=== PATIENT | female | born 1965 | race Caucasian/White ===

== ENCOUNTER 2025-04-26 18:27 | Emergency (ER) | payer OTHER, SELFPAY ==
--- OUTSIDE RECORDS SUMMARY | 2025-04-26 18:40 | XMS_ITS | Clinical Summary ---
Author Organization [facility] al Address [address] [place] [address] Care Team Providers Care Buzzle Buffer Name Role Phone Adi Alicia MD Primary Care Provider + Eder Avila PT Unavailable Unavailab le Allergies No known active allergies Medications albuterol HFA (PROAIR HFA) 90 mcg/actuation inhalerIndicati ons:Bronchitis Inhale 2 puffs every 4 (four) hours as needed for wheezing or shortness of breath. 8.5 g 9 Active hydrOXYzine (ATARAX) 25 mg tablet Take 1 tablet (25 mg total) by mouth 4 (four) times a day as needed for anxiety. 9 Active Additional Information Patient not taking.Reported on 09/17/2021 multivit diuhtdta-vjvt-X A-calcium (THERA-M) 9 mg iron-400 mcg tablet Take 1 tablet by mouth daily. [address] (PROTONIX) 40 mg EC tabletIndicatio ns:Treatment of Non-Bleeding Gastric Disorder Take 1 tablet (40 mg total) by mouth 2 (two) times a day Indications: Treatment of Non-Bleeding Gastric Disorder. 60 tablet 11 9 Active sertraline (ZOLOFT) 25 mg tablet Take 1 tablet (25 mg total) by mouth daily. 30 tablet 11 9 Active triamcinolone (KENALOG) 0.1 % cream Apply topically 2 (two) times a day 9 Active raNITIdine (ZANTAC) 150 mg tablet ranitidine 150 mg tablet Active predniSONE (DELTASONE) 20 mg tablet prednisone 20 mg tablet Active omega 1-pwp-qup-fish oil 1,000 mg (120 mg-180 mg) capsule 0 Active fluticasone propionate (FLONASE) 50 mcg/actuation nasal spray fluticasone propionate 50 mcg/actuation nasal spray,suspension Active cefdinir (OMNICEF) 300 mg capsule cefdinir 300 mg capsule Active calcium carbonate-vitam in D3 1500 mg (600 mg elemental) -200 units per tablet Take by mouth Active Active Problems Problem Noted Date Diagnosed Date Abnormal finding on breast imaging 09/11/2020 Nipple inflammation 09/11/2020 Breast mass, left 09/11/2020 Anxiety 01/22/2019 Assessment & Plan (01/23/2019 9:33 AM POWER TRANSFORMER INSPECTOR): Post ICU syndrome: anxiety with recurrent tachypnea, started sertraline 25mg QD, atarax prn Hoarseness 01/18/2019 Assessment & Plan (01/23/2019 9:33 AM POWER TRANSFORMER INSPECTOR): - Very hoarse following intubation - ENT c/s: 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 No surgical intervention recommended. - Speech c/s: Cleared for dysphagia 2/thin liquid diet. 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 No surgical intervention recommended. - Speech c/s: Cleared for dysphagia 2/thin liquid diet. HSV (herpes simplex virus) infection 01/18/2019 Assessment & Plan (01/24/2019 9:09 AM POWER TRANSFORMER INSPECTOR): Lip and esophageal ulcers. Serum HSV PCR + - s/p acyclovir IV 01/17- 01/23 (7 days). Assessment & Plan (01/19/2019 1:05 PM POWER TRANSFORMER INSPECTOR): - Patient with crusted ulcers on lip and esophageal ulcers - Serum HSV PCR positive. Esophageal biopsies consistent with HSV esophagitis. - Acyclovir (01/17-) Melena 01/16/2019 Assessment & Plan (01/24/2019 9:08 AM POWER TRANSFORMER INSPECTOR): Noted on 01/15. GI following - EGD 01/15 w/ non-bleeding cratered and linear esophageal ulcers, erosive gastropathy. - Esophageal biopsy + HSV esophagitis. - s/p acyclovir 01/17- 01/23 (7 days). - transfuse Hgb <7 No further episodes of melena. Hgb stable ~7.5-8. Assessment & Plan (01/19/2019 1:04 PM POWER TRANSFORMER INSPECTOR): 950 mL of black liquid stool on 01/15. Hgb trend 7.4 -> 6.2 -> 1 U pRBCs -> 7.9. - GI following - Hemodynamically stable - CBC Q12, transfuse to Hgb >7 - Pantoprazole 40 mg IV BID - EGD showed non-bleeding cratered & linear esophageal ulcers, NG trauma in stomach, erosive gastropathy - EGD biopsies consistent with HSV esophagitis. On acyclovir (01/17-) Rash 01/12/2019 Assessment & Plan (01/25/2019 10:26 AM POWER TRANSFORMER INSPECTOR): Derm c/s: Drug rash vs. Virus. Start triamcinolone if having sx RESOLVED. Assessment & Plan (01/14/2019 4:44 PM POWER TRANSFORMER INSPECTOR): Noted to have maculopapular rash over large section of her BLE, back, and trunk in distribution. Soap changed. Likely drug or virus-related. - Dermatology following - Rec'd Benadryl 50 for increasing rash - No topical steroids - Can initiate triamcinolone cream once patient is extubated and if symptomatic from rash Coagulopathy 01/11/2019 Assessment & Plan (01/25/2019 10:26 AM POWER TRANSFORMER INSPECTOR): P/w plts <100 and bleeding from line sites/mouth. IMANI showed increased clotting time. D-dimer high, normal INR, LDH high, peripheral smear normal. ENT consulted 01/12, oropharyngeal packing removed after 48+ hours, L nasal packing in place - Thrombocytopenia 2/ sepsis and other illness, now recovered with plts >300 - CT-CAP 01/11 neg for hemorrhage. - Noted to have melena on 01/15, EGD with HSV esophagitis - S/p 7u plts, 3u FFP, 12u pRBC (last 01/18 am), and desmopressin 20 mcg x 2 on 01/11-01/13 RESOLVED. Hgb remains stable ~8, plts 400s. Assessment & Plan (01/19/2019 1:03 PM POWER TRANSFORMER INSPECTOR): Bleeding at insertion site of radial A line, in mouth, and menstrual. Pt oozing blood continuously. IMANI showed increased clotting time. D-dimer high, normal INR, LDH high, peripheral smear normal. DDx post-ECMO coagulopathy, hyperuremia, HSV. - Noted to have melena on 01/15 - S/p 3 pRBC + 2 FFP, desmopressin 20 mcg x 2 on 01/11-01/13 - CTM CBC, Plt goal >100 - CT CAP 01/11 with no evidence of hemorrhage - ENT consulted 01/12, oropharyngeal packing removed after 48+ hours, L nasal packing in place - LEDs 01/17 negative - Serum HSV PCR positive and biopsies of esophageal ulcers positive for HSV esophagitis. Started on acyclovir 01/17 Acute kidney injury 01/05/2019 Assessment & Plan (01/25/2019 10:26 AM POWER TRANSFORMER INSPECTOR): 2/ ATN. B/l Cr 1-1.1, peaked at 6.5 - renal following - S/p CVVHD (started 01/11) and iHD (last session 01/19) - pulled RIJ HD cath 3/ per renal as no longer needs HD due to good UOP and improving Cr - Cr continues to improve, 1.65 today - renal signed off, has f/u as outpatient 03/22 Assessment & Plan (01/19/2019 1:03 PM POWER TRANSFORMER INSPECTOR): In setting of septic shock, likely 2/2 prerenal and ischemic ATN. Initial AG lactic acidosis 2/2 septic shock, worsened with contrast and vanc. Pt previously being diuresed while on VV ECMO. - Renal following - CVVHDF (01/11-01/17) -> SLED -> iHD (01/19) - UOP > 200 mL yesterday although not charted - Cr 1.40 -> 3.42 - Tolerated iHD well today - CTM UOP and daily BMP to assess recovery of renal function Septic shock 12/31/2018 Assessment & Plan (01/20/2019 1:43 PM POWER TRANSFORMER INSPECTOR): 2/ flu A and S. Pyogenes bacteremia. Blood cx + on 12/31, neg on 01/02 and neg on multiple BCx since then. S/p pressors - S/p Vanc (12/31-01/04), azithro, cefe (01/05-01/11), CTX (01/03-01/16), tamiflu (s/p 7 day course) RESOLVED. Assessment & Plan (01/17/2019 2:40 PM POWER TRANSFORMER INSPECTOR): 2/ S. pyogenes bacteremia, influenza A, and pneumonia (? GAS). Patient initially neutropenic and thrombocytopenic in s/o sepsis. - S/p Azithromycin, vanc (12/31-01/01), CTX (5 days for UTI), cefe, CTX finished 01/16 - Completed oseltamivir 7 day course for flu coverage - Repeat blood cultures 01/02 negative - C. diff 01/08 negative - Now off pressors - TTE 01/01: mild-mod global LV systolic dysfunction (EF 30-40%), global hypokinesis involving all segments of LV, mild TR, dilated IVC w/o respiratory collapse (c/w elevated RAP). - [place] 01/03: negative for shunting, vegetations, or thrombus. Normal Global LVSF (55-60%), mild TR/MR. Assessment & Plan (12/31/2018 6:19 PM POWER TRANSFORMER INSPECTOR): Started on Vanco, Cefepime, Zithromax Acute respiratory failure with hypoxia and hyper capnia 12/31/2018 Assessment & Plan (01/21/2019 9:55 AM POWER TRANSFORMER INSPECTOR): ARDS 2/2 sepsis in s/o PNA, influenza A, GAS bacteremia. - S/p intubation from 12/31->VV ECMO 01/05-01/13->extubated 01/17, now on room air - CT head 01/11 neg. ABG on 01/18, mildly alkalotic w/ pH 7.51 (pCO2 31, pO2 91) - no longer as tachypneic (anxiety thought to be contributing), satting well on RA Assessment & Plan (01/17/2019 7:44 PM POWER TRANSFORMER INSPECTOR): ARDS presumed secondary to sepsis in setting of BL PNA with influenza A infection and S. Pyogenes positive blood cultures. Prev proned and s/p velitri 20K. - Initially on BiPAP then intubated/sedated for worsening respiratory status on 12/31, extubated 01/17 - S/p VV ECMO 01/05-01/13 - Continue scheduled APAP and oxycodone - CT head 01/11 negative Assessment & Plan (12/31/2018 6:23 PM POWER TRANSFORMER INSPECTOR): On Bipap, theater usher consulted. Pt full code D-dimer positive, CT Chest pending Resolved Problems Problem Noted Date Diagnosed Date Resolved Date Fever 01/14/2019 01/20/2019 Assessment & Plan (01/15/2019 2:41 AM POWER TRANSFORMER INSPECTOR): Likely post-ECMO related. - Treated for fever for 24 hours after ECMO decannulation. - Follow up olson cultures, fungal cultures, serum galactomannon - Changed all CVCs Respiratory failure with hyp oxia and hypercapnia 01/06/2019 01/06/2019 Immunizations Immunization Administration Dates Next Due Influenza, Quadrivalent, Spl it, Preservative Free, Intramuscular 01/21/2019 Influenza, Split 03/20/2014 Surgical History Surgery Date Site/Laterality Comments BREAST BIOPSY 09/25/2020 Left Family History Medical History Relation Name Comments Other Brother 2 healthy; Other Father ALS, Type 2 DM; Heart attack Maternal Grandmother [place]; Coronary artery disease Mother Penny nary artery disease; Relation Name Status Comments Brother 1 Alive Brother 2 Father Alive Maternal Grandmother Alive Mother Alive Social History Tobacco Use Types Packs/Day Years Used Date Smoking Tobacco: Never Alcohol Use Standard Drinks/Week Comments Yes 0 (1 standard drink = 0.6 oz pur e alcohol) Comments No Sex and Gender Information Value Date Recorded Sex Assigned at Not on file Legal Sex Female 11:50 PM POWER TRANSFORMER INSPECTOR Gender Identity Not on file Sexual Orientation Not on file Obstetrics History Last Filed Vital Signs Vital Sign Reading Time Taken Comments Blood Pressure 112/60 09/17/2021 9:43 AM CDT Pulse 57 09/17/2021 9:43 AM CDT Temperature 36.7 C (98.1 F) 09/17/2021 9:43 AM CDT Respiratory Rate 16 09/17/2021 9:43 AM CDT Oxygen Saturation 96% 09/17/2021 9:43 AM CDT Inhaled Oxygen Concentration - - Weight 49.9 kg (110 lb) 09/17/2021 9:43 AM CDT Height 154.9 cm (5' 1) 09/17/2021 9:43 AM CDT Body Mass Index 20.78 09/17/2021 9:43 AM CDT Plan of Treatment Health Maintenance Due Date Last Done Comments Cervical Cancer Screening 1964 Depression Screening 1964 Hepatitis B Screening 1982 Regular Well Visit/Exam 18-64 1982 Colon Cancer Screening-Colonoscopy 05/29/2024 05/29/2014, 05/29/2014 Influenza Vaccine (Season Ended) 2025 09/01/2022, 08/27/2021, 09/15/2020, Additional history exists Breast Cancer Screening-Mammogram 10/11/2025 10/11/2024, 10/08/2023, 10/08/2023, Additional history exists DTaP/Tdap/Td Vaccine (2 - Td or Tdap) 03/07/2029 03/07/2019 Colon Cancer Screening-CT Colonography Discontinued 05/29/2014, 05/29/2014 Colon Cancer Screening-DNA Stool Discontinued 05/29/2014, 05/29/2014 Colon Cancer Screening-FIT Discontinued 05/29/2014, Colon Cancer Screening-Sigmoidoscopy Discontinued 05/29/2014, 05/29/2014 Hepatitis C Screening Completed 01/01/2019 Zoster Vaccine Completed 10/17/2019, 06/10/2019 Pneumococcal vaccine <65 Aged Out 11/02/2020, 01/21 No longer eligible based on patient's age to complete this topic Procedures Procedure Name Priority Date/Time Associated Diagnosis Comments SCREENING MAMMOGRAM BILATERAL W KARLO Schedule Routine, Read Routine (OP Routine) 10/11/2024 2:14 PM POWER TRANSFORMER INSPECTOR Screening mammogram, encounter for HEPATITIS C ANTIBODY Routine 01/01/2019 2:52 AM POWER TRANSFORMER INSPECTOR COLONOSCOPY IMAGES 05/29/2014 from Last 3 Months or Most Recently Relevant to Health Maintenance Results * Screening Mammogram Bilateral W Karlo (10/11/2024 2:14 PM POWER TRANSFORMER INSPECTOR) Anatomical Region Laterality Modality Breast Bilateral Mammography Narrative 10/13/2024 2:29 PM POWER TRANSFORMER INSPECTOR Mammogram Technique: Bilateral Digital Breast Tomosynthesis, Bilateral C-view 2D Screening mammogram. Views obtained: bilateral craniocaudal and bilateral mediolateral oblique. Computer Aided Detection was performed. Mammogram Findings: The present examination has been compared to prior imaging studies performed at [facility] on 03/10/2017, 08/31/2018, 01/25/2020, 09/11/2020, 01/08/2022 and 10/08/2023. There are scattered areas of fibroglandular density. There is no suspicious abnormality in either breast. There are no significant changes from the prior study. Impression: There is no mammographic evidence of malignancy. Annual screening mammography is recommended. OVERALL FINAL ASSESSMENT: BI-RADS CATEGORY 1: Negative. Procedure Note Paula Villeda MD - 10/13/2024 Mammogram Technique: Bilateral Digital Breast Tomosynthesis, Bilateral C-view 2D Screening mammogram. Views obtained: bilateral craniocaudal and bilateral mediolateral oblique. Computer Aided Detection was performed. Mammogram Findings: The present examination has been compared to prior imaging studies performed at [facility] on 03/10/2017, 08/31/2018,01/25/2020, 09/11/2020, 01/08/2022 and 10/08/2023. There are scattered areas of fibroglandular density. There is no suspicious abnormality in either breast. There are no significant changes from the prior study. Impression: There is no mammographic evidence of malignancy. Annual screening mammography is recommended. OVERALL FINAL ASSESSMENT: BI-RADS CATEGORY 1: Negative. us Self Screening Mammogram IMG MAMMO PROCEDURES Fi nal Result * Hepatitis C antibody (01/01/2019 2:52 AM POWER TRANSFORMER INSPECTOR) Hep C Ab Negative Negative MICHELLE RENEE (YVNO) Comment:Testing performed by : [facility], [address] [place] [address]., [id number] Blood specimen (specimen) 01/01/2019 2:52 AM POWER TRANSFORMER INSPECTOR 01/03/2019 11:03 AM POWER TRANSFORMER INSPECTOR Narrative MICHELLE RENEE (YVNO) - 01/03/2019 11:54 AM POWER TRANSFORMER INSPECTOR Ramiro Hernandez MD LAB MICROBIOLOGY - G ENERAL ORDERABLES Final Result MICHELLE THELMA (YVON) [address] [facility] Department [place] [address] * COLONOSCOPY IMAGES (05/29/2014) Anatomical Region Laterality Modality Other Narrative 05/29/2014 Ordered by an unspecified provider. Historical Provider GI PROCEDURE ORDERABLES F inal Result from Last 3 Months or Most Recently Relevant to Health Maintenance Insurance [employer] [facility] Advance Directives For more information, please contact: [phone] * Full Code (Latest Code Status on File) Date Activated Date Inactivated Comments 01/05/2019 6:33 AM 01/25/2019 7:07 PM * Full Code Date Activated Date Inactivated Comments 12/31/2018 9:03 PM 01/05/2019 6:30 AM * Full Code Date Activated Date Inactivated Comments 12/31/2018 6:39 PM 12/31/2018 9:03 PM Healthcare Agents on File Name Relationship Healthcare Agent Relationshi p Communication Heather Cason Spouse Health Care Agent Care Teams Buzzle Buffer Relationship Specialty Start Date End Date Adi Alicia MD PCP - General 03/08/19 Eder Avila, PT Physical Therapist Physical Therapy 03/13/22
--- OUTSIDE RECORDS SUMMARY | 2025-04-26 18:40 | XMS_ITS | Encounter Summary ---
Author Organization [facility] Address [address] [place] [address] Phone Care Team Providers Care Industrial Nurse Name Role Phone Zaire Fernandes MD Primary Care Provider [phone] Adi Alicia MD Primary Care Provider + Eder Avila PT Unavailable Unavailab le Encounter Details Date Type Department Care Team (Late st Contact Info) Description 01/10/2019 Ophth Exam [facility] [address] [place] [address] [place] [address] Fela Juan MD [address] [place] [address] Social History Tobacco Use Types Packs/Day Years Used Date Smoking Tobacco: Never Alcohol Use Standard Drinks/Week Comments Yes 0 (1 standard drink = 0.6 oz pur e alcohol) Comments No Sex and Gender Information Value Date Recorded Sex Assigned at Not on file Legal Sex Female 11:50 PM GUIDE SETTER Gender Identity Not on file Sexual Orientation Not on file documented as of this encounter Plan of Treatment Not on file documented as of this encounter Visit Diagnoses Not on filedocumented in this encounter Additional Health Concerns Infection Onset Date Last Indicated Resolved Time COVID: Suspected 09/17/2021 09/17/2021 09/17/2021 10:06 AM CDT documented as of this encounter Eye Exam Visual Acuity Right eye Left eye Near sc no BTL no BTL Tonometry (Tonopen, 12:32 PM) Right eye Left eye Pressure 8 12 Pupils Dark Light Shape React APD Right eye 2 1.5 Round Brisk None Left eye 2 1.5 Round Brisk None Neuro/Psych Mood/Affect: Sedated Dilation Both eyes: 1.0% Mydriacyl, 2 .5% Phenylephrine, 1.0% Cyclogyl @ 12:40 PM External Exam Right eye Left eye External Sedated, intubated, on ECMO Maci arpita, intubated, on ECMO Slit Lamp Exam Right eye Left eye Lids/Lashes 3-4 mm lagophthalmos OS>OD 3-4 m m lagophthalmos OS>OD Conjunctiva/Sclera Mild chemosis and in jection most prominent in IPF, tr MILI Mild chemosis and injection most prominent in IPF, tr MILI Cornea Diffuse PEE Diffuse PEE, inf erior dellen Anterior Chamber Deep and formed Deep and formed Iris Round and reactive Round and francie ctive Lens Tr NS Tr NS Vitreous Normal Normal Fundus Exam Right eye Left eye Disc Normal Normal C/D Ratio 0.3 0.3 Macula Normal Normal Vessels Normal Normal Periphery Normal Normal Care Teams Industrial Nurse Relationship Specialty Start Date End Date Zaire Fernandes MD [address] [place] [address] PCP - General 02/20/17 03/07/19 Adi Alicia MD [address] [place] [address] PCP - General 03/08/19 Eder Avila, PT Physical Therapist Physical Therapy 03/13/22 documented as of this encounter
--- OUTSIDE RECORDS SUMMARY | 2025-04-26 18:40 | XMS_ITS | Data Portability ---
Author Organization [place] [facility], Main Office Address [address] [place] [address] Care Team Providers Care [employer] Senior Officer Name Role Phone KATHY CHAUDHRY Primary Care Provider [phone] KATHY CHAUDHRY Referring Provider [phone] Assessment Encounter Date Assessment Date Assessment LastModified by Organization Details LastModified Time 09/02/2023 09/02/2023 58-year-old patient presents today with right knee pain that has been on off for few months. She has pain on the medial side with activities like running and lawn work. She denies any injury. She denies locking or catching. She takes ibuprofen for the pain, which helps sometimes. She states that the knee has gotten better over the last few weeks but she wanted to have it checked out just to be sure. Review of systems per patient questionnaire Imaging: X-rays reviewed show no acute bony abnormality, no fracture. Some mild joint space narrowing on the medial sides bilaterally but otherwise joint spaces preserved throughout. Physical exam: Nonantalgic gait. No tenderness with palpitation. Range of motion 0-150 without crepitus. Negative Arabella's. Stable Tanika's with firm endpoint. Stable posterior drawer, varus and valgus stress. Normal patellar mobility. She does not feel that she has enough pain to want to attend formal physical therapy. We will provide her with a knee exercise handout that she can work on at home. We will also order meloxicam for anti-inflammator y therapy. We will see her back in 4-6 weeks to check her progress. [email or web address] Not available 09/04/2023 09:31:45 Plan of Treatment Reminders Order Date Submit Date Provider Last Modified By Organization Details Last Modified Time Details Appointments None recorded . Lab None recorded . Referral None recorded . Procedures None recorded . Surgeries None recorded . Imaging XR, knee, 3 view 023 09/02/20 23 [email or web address] [facility] [place], [address], [place], [address], 3 09:20:04 Medication Orders Mobic 15 mg tablet 023 09/02/20 23 [email or web address] [id number], [address], [place], [place], [id number], 3 19:56:18 Patient TargetsNo targets recorded. Patient InstructionsNo instructions recorded. Reason for Referral None Reported. Results Created Date Observation Date Name Description Value Unit Range Abnormal Flag Note LastModifiedBy Organization Detail LastModifiedTime 03/03/20 22 XR, shoul myrna, 2 or more view No observ ation record ed. [id number] [id number] [place] [address], [place], [address], 01/21/2023 14:14:20 09/02/20 23 XR, knee, 3 view No observ ation record ed. [email or web address] [facility] [place] [address], [place], [address], 09/04/2023 09:29:16 Result Notes None recorded. Problems Name Problem SNOMED Code Status Onset Date Resolution Date Notes Provider Name and Address Organization Details Recorded Time Disorder of shoulder 816668392 Active Not Available [facility] 3 14:12:07 Partial thickness rotator cuff tear 602829826 Active 2021 Not Available [facility] 3 14:12:07 Enthesopat hy of hip region 19555936 Active Not Available [facility] 3 14:12:07 Spinal stenosis in cervical region 22634117 Active 2021 Not Available [facility] 3 14:12:07 Pain of right knee joint 0095437706446 00 Active 2022 Viky Choi, ADRIANA null, [place] [facility] 3 15:37:16 Problem Notes None recorded. Medical Equipment None Reported. Medications Name Sig Start Date Stop Date Status Note LastModified by Organization Details LastModified Time prednisone 10 mg tablet 09/02 completed Not Available Not Available Not Available doxycycline hyclate 100 mg capsule 09/02 completed Not Available Not Available Not Available tizanidine 2 mg tablet 09/02 completed Not Available Not Available Not Available trazodone 50 mg tablet active Not Available Not Available Not Available benzonatate 200 mg capsule 09/30 completed Not Available Not Available Not Available prednisone 20 mg tablet 03/03 completed Not Available Not Available Not Available amlodipine 2.5 mg tablet TAKE 1 TABLET BY MOUTH DAILY active Not Available Not Available No t Available triamcinolo ne acetonide 0.1 % topical cream 03/03 completed Not Available Not Available Not Available prednisone 10 mg tablets in a dose pack Take 1 tab by mouth, 3 times a day for 3 daysTake 1 tab by mouth 2 times a day for 2 daysTake 1 tab by mouth once a day for 1 day 09/02 completed Not Available Not Available Not Available Mobic 15 mg tablet Take 1 tablet every day by oral route. 2022 active Not Available Not Available Not Avai lable dicyclomine 20 mg tablet 03/03 completed Not Available Not Available Not Available ranitidine 150 mg tablet 03/03 completed Not Available Not Available Not Available methylpredn isolone 4 mg tablets in a dose pack 03/03 completed Not Available Not Available Not Available cefdinir 300 mg capsule 03/03 completed Not Available Not Available Not Available fluticasone propionate 50 mcg/actuati on nasal spray,suspe nsion 03/03 completed Not Available Not Available Not Available dicyclomine 10 mg capsule 03/03 completed Not Available Not Available Not Available ProAir HFA 90 mcg/actuati on aerosol inhaler INL 2 PFS PO Q 4 H PRF WHZ OR SOB active Not Available Not Available No t Available diclofenac 1 % topical gel APPLY 2 GRAMS TO AFFECTED AREA FOUR TIMES DAILY 09/02 completed Not Available Not Available Not Available Shingrix (PF) 50 mcg/0.5 mL intramuscul ar suspension, kit 03/03 completed Not Available Not Available Not Available Vitals Date Recorded Body mass index (BMI) Body height Body weight Provider Name and Address Organization Details Last Updated DateTime 03/03/2022 21.7 kg/m2 154.94 cm 74764.12 g Not Available [facility] 01/21/2023 14:11:51 Date Recorded Body height Body mass index (BMI) Body weight Provider Name and Address Organization Details Last Updated DateTime 09/02/2023 154.94 cm 20.8 kg/m2 86828.16 g Viky Choi [facility] [employer] 09/02/2023 15:35:10 Social History Question Answer Notes LastModified by [employer] Details LastModified Time Tobacco Smoking Status Never Smoker Not Available [facility] 01/21/2023 14:10:28 What Was The Date Of Your Most Recent Tobacco Screening? 09/02/2023 [email or web address] Information not available 09/02/2023 Sex: Unknown Functional Status Question Answer Note LastModified by [employer] Details LastModified Time What is your level of alcohol consumption? Occasional [id number] Information not available 01/21/2023 Mental Status None recorded. Family History Relationship Description Onset Age of this Age Resolved Age Notes LastModified by Organization Details LastModified Time Mother Heart disease [id number] Not available 01/21/2023 14:10:29 Mother Hypertensive disorder [id number] Not available 01/21/2023 14:10:29 Medical History Condition Response ARTHRITIS Y ANEMIA/BLOOD DISORDER Y Gynecological HistoryNo gynecological history recorded. Obstetrics History GPAL:G 0 P 0 0 0 0 Past Encounters Encounter ID Performer Location Encounter Start Date Encounter Closed Date Diagnosis/Indication Diagnosis SNOMED-CT Code Diagnosis ICD10 Code Diagnosis Note [id number] Jaxson Lang [place] [facility] [place] [place] [address] [place] [address] 03/03/2022 00:00:00 03/03/2022 10:30:29 [id number] Alvin Stanley MD [facility] [place] [facility] [place] [address] [place] [address] 09/02/2023 15:19:34 09/02/2023 16:55:04 Pain of right knee joint 9373002957 85174 M25.561 Health Concerns Section Related Observation LastModified by Organization Detai ls LastModified Time None Recorded Concern Status LastModified by Organization Details LastModified Time None Recorded Advance Directives Directive None Recorded Payers Encounter Date Sequence Insurance Name Policy Number Policy Brown Covered Member ID Brown Member ID Guarantor Name 09/02/2023 1 [facility] Jerel Smith [id number] Gayathri Smith Notes Date Note Type Note Provider Name and Address Organization Details Recorded Time 03/03/2022 text/html C-spineReported bypatient.Locatio n:posterior; deep Quality:throbbing ; frequent Severity:moderate Timing:chronic; recurrent Context:lifting; twisting; overuse Alleviating Factors:lying down; ice; rest; exercise; stretching; NSAIDs Aggravating Factors:lifting; carrying; exercise Associated Symptoms:no numbness; no tingling; no redness; no warmth; no ecchymosis; no catching/locking; no popping/clicking; no buckling; no grinding; no instability; no radiation down arm; no drainage; no fever; no chills; no weight loss; no change in bowel/bladder habits;weakness;s wellingShoulderRe ported bypatient.Hand Dominance:right Location:anterior ; lateral Quality:throbbing ; frequent Severity:moderate Timing:recurrent; occasional Duration:continuo us since onset Aggravating Factors:pushing/p ulling; throwing; damp weather Alleviating Factors:rest; elevation; stretching; NSAIDs Associated Symptoms:no weakness; no numbness; no tingling; no redness; no ecchymosis; no catching/locking; no popping/clicking; no buckling; no grinding; no instability; no radiation down arm; no drainage; no fever; no chills; no weight loss; no change in bowel/bladder habits;swelling;w armth Not Available [facility] 03/03/2022 10:30:29 OBGyn Episode No OBEpisode recorded.
--- OUTSIDE RECORDS SUMMARY | 2025-04-26 18:40 | XMS_ITS | Encounter Summary ---
Author Organization [facility] Address [address] [place] [address] Care Team Providers Care Cloth Mercerizer Operator Name Role Phone Adi Alicia MD Primary Care Provider [phone] Encounter Details Date Type Department Care Team (Latest Contact Info) Description 10/08/2000 Outpatient Historical [facility] [place] [address] [facility] [place] [address] Elderly multigravida with antepartum condition or complication (Primary Dx) Social History Tobacco Use Types Packs/Day Years Used Date Smoking Tobacco: Never Assessed Comments Unknown Sex and Gender Information Value Date Recorded Sex Assigned at Not on file Legal 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
--- OUTSIDE RECORDS SUMMARY | 2025-04-26 18:40 | XMS_ITS | Encounter Summary ---
Author Organization [facility] Address [address] [place] [address] Care Team Providers Care Brand Ambassador Name Role Phone Adi Alicia MD Primary Care Provider [phone] Encounter Details Date Type Department Care Team (Latest Contact Info) Description 02/23/2001 Inpatient Historical [facility] [place] [address] [facility] [place] [address] Unspecified maternal pyrexia during labor, delivered (Primary Dx) Social History Tobacco Use Types Packs/Day Years Used Date Smoking Tobacco: Never Assessed Comments Unknown Sex and Gender Information Value Date Recorded Sex Assigned at Not on file 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
--- OUTSIDE RECORDS SUMMARY | 2025-04-26 18:40 | XMS_ITS ---
Author Organization [facility] Address [address] [place] [address] Care Team Providers Care Retail Store Associate Name Role Phone Adi Alicia MD Primary Care Provider + Eder Avila PT Unavailable Unavailab le Dialysis Access Sites Type Status Location Placement Date Removal Da te Hemodialysis Cath Triple Inactive Right N brett (side) - Anterior 01/14/2019 01/24/2019 Hemodialysis Cath Triple Inactive Right N brett (side) - Anterior 01/14/2019 01/14/2019 Hemodialysis Catheter Femoral Inactive Left Thigh - Anterior 01/11/2019 01/14/2019 Procedures Procedure Name Priority Date/Time Associated Diagnosis Comments SCREENING MAMMOGRAM BILATERAL W KARLO Schedule Routine, Read Routine (OP Routine) 10/11/2024 2:14 PM PRESCHOOL PROGRAM DIRECTOR Screening mammogram, encounter for HEPATITIS C ANTIBODY Routine 01/01/2019 2:52 AM PRESCHOOL PROGRAM DIRECTOR COLONOSCOPY IMAGES 05/29/2014 from Last 3 Months or Most Recently Relevant to Health Maintenance Allergies No known active allergies Medications albuterol [...] Information Patient not taking.Reported on 09/17/2021 multivit gkrisxry-sukf-L A-calcium (THERA-M) 9 mg iron-400 mcg tablet [...] tablet prednisone 20 mg tablet Active omega 5-cde-six-fish oil 1,000 mg (120 mg-180 mg) capsule [...] 01/22/2019 Assessment & Plan (01/23/2019 9:33 AM PRESCHOOL PROGRAM DIRECTOR): Post ICU syndrome: anxiety with recurrent tachypnea, started sertraline 25mg QD, atarax prn Hoarseness 01/18/2019 Assessment & Plan (01/23/2019 9:33 AM PRESCHOOL PROGRAM DIRECTOR): - Very hoarse following intubation - ENT c/s: 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 No surgical intervention recommended. - Speech c/s: Cleared for dysphagia 2/thin liquid diet. 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 No surgical intervention recommended. - Speech c/s: Cleared for dysphagia 2/thin liquid diet. HSV (herpes simplex virus) infection 01/18/2019 Assessment & Plan (01/24/2019 9:09 AM PRESCHOOL PROGRAM DIRECTOR): Lip and esophageal ulcers. Serum HSV PCR + - s/p acyclovir IV 01/17- 01/23 (7 days). Assessment & Plan (01/19/2019 1:05 PM PRESCHOOL PROGRAM DIRECTOR): - Patient with crusted ulcers on lip and esophageal ulcers - Serum HSV PCR positive. Esophageal biopsies consistent with HSV esophagitis. - Acyclovir (01/17-) Melena 01/16/2019 Assessment & Plan (01/24/2019 9:08 AM PRESCHOOL PROGRAM DIRECTOR): Noted on 01/15. GI following - EGD 01/15 w/ non-bleeding cratered and linear esophageal ulcers, erosive gastropathy. - Esophageal biopsy + HSV esophagitis. - s/p acyclovir 01/17- 01/23 (7 days). - transfuse Hgb <7 No further episodes of melena. Hgb stable ~7.5-8. Assessment & Plan (01/19/2019 1:04 PM PRESCHOOL PROGRAM DIRECTOR): 950 mL of black liquid stool on [...] 01/12/2019 Assessment & Plan (01/25/2019 10:26 AM PRESCHOOL PROGRAM DIRECTOR): Derm c/s: Drug rash vs. Virus. Start triamcinolone if having sx RESOLVED. Assessment & Plan (01/14/2019 4:44 PM PRESCHOOL PROGRAM DIRECTOR): Noted to have maculopapular rash over large section of her BLE, back, and trunk in distribution. Soap changed. Likely drug or virus-related. - Dermatology following - Rec'd Benadryl 50 for increasing rash - No topical steroids - Can initiate triamcinolone cream once patient is extubated and if symptomatic from rash Coagulopathy 01/11/2019 Assessment & Plan (01/25/2019 10:26 AM PRESCHOOL PROGRAM DIRECTOR): P/w plts <100 and bleeding from line sites/mouth. IMANI showed increased clotting time. D-dimer high, normal INR, LDH high, peripheral smear normal. ENT consulted 01/12, oropharyngeal packing removed after 48+ hours, L nasal packing in place - Thrombocytopenia / sepsis and other illness, now recovered with plts >300 - CT-CAP 01/11 neg for hemorrhage. - Noted to have melena on 01/15, EGD with HSV esophagitis - S/p 7u plts, 3u FFP, 12u pRBC (last 01/18 am), and desmopressin 20 mcg x 2 on 01/11-01/13 RESOLVED. Hgb remains stable ~8, plts 400s. Assessment & Plan (01/19/2019 1:03 PM PRESCHOOL PROGRAM DIRECTOR): Bleeding at insertion site of radial A [...] 01/05/2019 Assessment & Plan (01/25/2019 10:26 AM PRESCHOOL PROGRAM DIRECTOR): 2/2 ATN. B/l Cr 1-1.1, peaked at 6.5 - renal following - S/p CVVHD (started 01/11) and iHD (last session 01/19) - pulled RIJ HD cath 3/ per renal as no longer needs HD due to good UOP and improving Cr - Cr continues to improve, 1.65 today - renal signed off, has f/u as outpatient 03/22 Assessment & Plan (01/19/2019 1:03 PM PRESCHOOL PROGRAM DIRECTOR): In setting of septic shock, likely 2/2 [...] 12/31/2018 Assessment & Plan (01/20/2019 1:43 PM PRESCHOOL PROGRAM DIRECTOR): 2/2 flu A and S. Pyogenes bacteremia. Blood cx + on 12/31, neg on 01/02 and neg on multiple BCx since then. S/p pressors - S/p Vanc (12/31-01/04), azithro, cefe (01/05-01/11), CTX (01/03-01/16), tamiflu (s/p 7 day course) RESOLVED. Assessment & Plan (01/17/2019 2:40 PM PRESCHOOL PROGRAM DIRECTOR): 2/2 S. pyogenes bacteremia, influenza A, and pneumonia [...] TR/MR. Assessment & Plan (12/31/2018 6:19 PM PRESCHOOL PROGRAM DIRECTOR): Started on Vanco, Cefepime, Zithromax Acute respiratory failure with hypoxia and hyper capnia 12/31/2018 Assessment & Plan (01/21/2019 9:55 AM PRESCHOOL PROGRAM DIRECTOR): ARDS 2/ sepsis in s/o PNA, influenza A, GAS bacteremia. - S/p intubation from 12/31->VV ECMO 01/05-01/13->extubated 01/17, now on room air - CT head 01/11 neg. ABG on 01/18, mildly alkalotic w/ pH 7.51 (pCO2 31, pO2 91) - no longer as tachypneic (anxiety thought to be contributing), satting well on RA Assessment & Plan (01/17/2019 7:44 PM PRESCHOOL PROGRAM DIRECTOR): ARDS presumed secondary to sepsis in setting of BL PNA with influenza A infection and S. Pyogenes positive blood cultures. Prev proned and s/p velitri 20K. - Initially on BiPAP then intubated/sedated for worsening respiratory status on 12/31, extubated 01/17 - S/p VV ECMO 01/05-01/13 - Continue scheduled APAP and oxycodone - CT head 01/11 negative Assessment & Plan (12/31/2018 6:23 PM PRESCHOOL PROGRAM DIRECTOR): On Bipap, spooling machine operator consulted. Pt full code D-dimer positive, CT Chest pending Immunizations Immunization Administration Dates Next Due Influenza, Quadrivalent, Spl it, Preservative Free, Intramuscular 01/21/2019 Influenza, Split 03/20/2014 Social History Tobacco Use Types Packs/Day Years Used Date Smoking Tobacco: Never Alcohol Use Standard Drinks/Week Comments Yes 0 (1 standard drink = 0.6 oz pur e alcohol) Comments No Sex and Gender Information Value Date Recorded Sex Assigned at Not on file Legal Sex Female 11:50 PM PRESCHOOL PROGRAM DIRECTOR Gender Identity Not on file Sexual Orientation Not on file Last Filed Vital Signs Vital Sign Reading [...] Mass Index 20.78 09/17/2021 9:43 AM CDT Results * Screening Mammogram Bilateral W Karlo (10/11/2024 2:14 PM PRESCHOOL PROGRAM DIRECTOR) Anatomical Region Laterality Modality Breast Bilateral Mammography Narrative 10/13/2024 2:29 PM PRESCHOOL PROGRAM DIRECTOR Mammogram Technique: Bilateral Digital Breast Tomosynthesis, Bilateral C-view 2D Screening mammogram. Views obtained: bilateral craniocaudal and bilateral mediolateral oblique. Computer Aided Detection was performed. Mammogram Findings: The present examination has been compared to prior imaging studies performed at [facility] on 03/10/2017, 08/31/2018, 01/25/2020, 09/11/2020, 01/08/2022 and [...] compared to prior imaging studies performed at [facility] on 03/10/2017, 08/31/2018,01/25/2020, 09/11/2020, 01/08/2022 and 10/08/2023. There are scattered areas of fibroglandular density. There is no suspicious abnormality in either breast. There are no significant changes from the prior study. Impression: There is no mammographic evidence of malignancy. Annual screening mammography is recommended. OVERALL FINAL ASSESSMENT: BI-RADS CATEGORY 1: Negative. Self Screening Mammogram IMG MAMMO PROCEDURES Fi nal Result * Hepatitis C antibody (01/01/2019 2:52 AM PRESCHOOL PROGRAM DIRECTOR) Hep C Ab Negative Negative MICHELLE RENEE (YVON) Comment:Testing performed by : [facility], [address] [place] [address], [place]., [address] Blood specimen (specimen) 01/01/2019 2:52 AM PRESCHOOL PROGRAM DIRECTOR 01/03/2019 11:03 AM PRESCHOOL PROGRAM DIRECTOR Narrative MICHELLE RENEE (YVON) - 01/03/2019 11:54 AM PRESCHOOL PROGRAM DIRECTOR us Ramiro Hernandez MD LAB MICROBIOLOGY - G ENERAL ORDERABLES Final Result MICHELLE RENEE (YVON) 1 [facility] Department [place] [address] * COLONOSCOPY IMAGES (05/29/2014) Anatomical Region Laterality Modality Other Narrative 05/29/2014 Ordered by an unspecified provider. Historical Provider GI PROCEDURE ORDERABLES F inal Result from Last 3 Months or Most Recently Relevant to Health Maintenance
--- OUTSIDE RECORDS SUMMARY | 2025-04-26 18:40 | XMS_ITS | Referral Summary ---
Author Organization [facility] Address [address] [place] [address] Care Team Providers Care Fondant Puff Maker Name Role Phone Adi Alicia MD Primary [...] Information Patient not taking.Reported on 09/17/2021 multivit [id number] A-calcium (THERA-M) 9 mg iron-400 mcg tablet [...] tablet prednisone 20 mg tablet Active omega 1-hho-irt-fish oil 1,000 mg (120 mg-180 mg) capsule [...] 01/22/2019 Assessment & Plan (01/23/2019 9:33 AM LINK TRAINER OPERATOR): Post ICU syndrome: anxiety with recurrent tachypnea, started sertraline 25mg QD, atarax prn Hoarseness 01/18/2019 Assessment & Plan (01/23/2019 9:33 AM LINK TRAINER OPERATOR): - Very hoarse following intubation - ENT c/s: 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 No surgical intervention recommended. - Speech c/s: Cleared for dysphagia 2/thin liquid diet. 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 No surgical intervention recommended. - Speech c/s: Cleared for dysphagia 2/thin liquid diet. HSV (herpes simplex virus) infection 01/18/2019 Assessment & Plan (01/24/2019 9:09 AM LINK TRAINER OPERATOR): Lip and esophageal ulcers. Serum HSV PCR + - s/p acyclovir IV 01/17- 01/23 (7 days). Assessment & Plan (01/19/2019 1:05 PM LINK TRAINER OPERATOR): - Patient with crusted ulcers on lip and esophageal ulcers - Serum HSV PCR positive. Esophageal biopsies consistent with HSV esophagitis. - Acyclovir (01/17-) Melena 01/16/2019 Assessment & Plan (01/24/2019 9:08 AM LINK TRAINER OPERATOR): Noted on 01/15. GI following - EGD 01/15 w/ non-bleeding cratered and linear esophageal ulcers, erosive gastropathy. - Esophageal biopsy + HSV esophagitis. - s/p acyclovir 01/17- 01/23 (7 days). - transfuse Hgb <7 No further episodes of melena. Hgb stable ~7.5-8. Assessment & Plan (01/19/2019 1:04 PM LINK TRAINER OPERATOR): 950 mL of black liquid stool on [...] 01/12/2019 Assessment & Plan (01/25/2019 10:26 AM LINK TRAINER OPERATOR): Derm c/s: Drug rash vs. Virus. Start triamcinolone if having sx RESOLVED. Assessment & Plan (01/14/2019 4:44 PM LINK TRAINER OPERATOR): Noted to have maculopapular rash over large section of her BLE, back, and trunk in distribution. Soap changed. Likely drug or virus-related. - Dermatology following - Rec'd Benadryl 50 for increasing rash - No topical steroids - Can initiate triamcinolone cream once patient is extubated and if symptomatic from rash Coagulopathy 01/11/2019 Assessment & Plan (01/25/2019 10:26 AM LINK TRAINER OPERATOR): P/w plts <100 and bleeding from line [...] 400s. Assessment & Plan (01/19/2019 1:03 PM LINK TRAINER OPERATOR): Bleeding at insertion site of radial A [...] 01/05/2019 Assessment & Plan (01/25/2019 10:26 AM LINK TRAINER OPERATOR): 2/ ATN. B/l Cr 1-1.1, peaked at 6.5 - renal following - S/p CVVHD (started 01/11) and iHD (last session 01/19) - pulled RIJ HD cath 3/ per renal as no longer needs HD due to good UOP and improving Cr - Cr continues to improve, 1.65 today - renal signed off, has f/u as outpatient 03/22 Assessment & Plan (01/19/2019 1:03 PM LINK TRAINER OPERATOR): In setting of septic shock, likely 2/2 [...] 12/31/2018 Assessment & Plan (01/20/2019 1:43 PM LINK TRAINER OPERATOR): 2/ flu A and S. Pyogenes bacteremia. Blood cx + on 12/31, neg on 01/02 and neg on multiple BCx since then. S/p pressors - S/p Vanc (12/31-01/04), azithro, cefe (01/05-01/11), CTX (01/03-01/16), tamiflu (s/p 7 day course) RESOLVED. Assessment & Plan (01/17/2019 2:40 PM LINK TRAINER OPERATOR): 2/ S. pyogenes bacteremia, influenza A, and [...] TR/MR. Assessment & Plan (12/31/2018 6:19 PM LINK TRAINER OPERATOR): Started on Vanco, Cefepime, Zithromax Acute respiratory failure with hypoxia and hyper capnia 12/31/2018 Assessment & Plan (01/21/2019 9:55 AM LINK TRAINER OPERATOR): ARDS 2/2 sepsis in s/o PNA, influenza A, GAS bacteremia. - S/p intubation from 12/31->VV ECMO 01/05-01/13->extubated 01/17, now on room air - CT head 01/11 neg. ABG on 01/18, mildly alkalotic w/ pH 7.51 (pCO2 31, pO2 91) - no longer as tachypneic (anxiety thought to be contributing), satting well on RA Assessment & Plan (01/17/2019 7:44 PM LINK TRAINER OPERATOR): ARDS presumed secondary to sepsis in setting of BL PNA with influenza A infection and S. Pyogenes positive blood cultures. Prev proned and s/p velitri 20K. - Initially on BiPAP then intubated/sedated for worsening respiratory status on 12/31, extubated 01/17 - S/p VV ECMO 01/05-01/13 - Continue scheduled APAP and oxycodone - CT head 01/11 negative Assessment & Plan (12/31/2018 6:23 PM LINK TRAINER OPERATOR): On Bipap, business development officer consulted. Pt full code D-dimer positive, CT Chest pending Resolved Problems Problem Noted Date Diagnosed Date Resolved Date Fever 01/14/2019 01/20/2019 Assessment & Plan (01/15/2019 2:41 AM LINK TRAINER OPERATOR): Likely post-ECMO related. - Treated for fever [...] on file Legal Sex Female 11:50 PM LINK TRAINER OPERATOR Gender Identity Not on file Sexual Orientation [...] 09/17/2021 9:43 AM CDT Plan of Treatment Not on file Procedures Procedure Name Priority Date/Time Associated Diagnosis Comments SCREENING MAMMOGRAM BILATERAL W KARLO Schedule Routine, Read Routine (OP Routine) 10/11/2024 2:14 PM LINK TRAINER OPERATOR Screening mammogram, encounter for HEPATITIS C ANTIBODY Routine 01/01/2019 2:52 AM LINK TRAINER OPERATOR COLONOSCOPY IMAGES 05/29/2014 from Last 3 Months or Most Recently Relevant to Health Maintenance Results * Screening Mammogram Bilateral W Karlo (10/11/2024 2:14 PM LINK TRAINER OPERATOR) Anatomical Region Laterality Modality Breast Bilateral Mammography Narrative 10/13/2024 2:29 PM LINK TRAINER OPERATOR Mammogram Technique: Bilateral Digital Breast Tomosynthesis, Bilateral C-view 2D Screening mammogram. Views obtained: bilateral craniocaudal and bilateral mediolateral oblique. Computer Aided Detection was performed. Mammogram Findings: The present examination has been compared to prior imaging studies performed at [facility] on 03/10/2017, 08/31/2018, 01/25/2020, 09/11/2020, 01/08/2022 and [...] compared to prior imaging studies performed at [facility] on 03/10/2017, 08/31/2018,01/25/2020, 09/11/2020, 01/08/2022 and 10/08/2023. [...] * Hepatitis C antibody (01/01/2019 2:52 AM LINK TRAINER OPERATOR) Hep C Ab Negative Negative MICHELLE RENEE (YVON) Comment:Testing performed by : [facility], [address] [place] [address]., [id number] Blood specimen (specimen) 01/01/2019 2:52 AM LINK TRAINER OPERATOR 01/03/2019 11:03 AM LINK TRAINER OPERATOR Narrative MICHELLE RENEE (YVON) - 01/03/2019 11:54 AM LINK TRAINER OPERATOR us Ramiro Hernandez MD LAB MICROBIOLOGY - G ENERAL ORDERABLES Final Result MICHELLE RENEE (YVON) 1 [facility] Department [place] [address] * COLONOSCOPY IMAGES (05/29/2014) Anatomical Region Laterality Modality Other Narrative 05/29/2014 Ordered by an unspecified provider. us Historical Provider MD POSEY PROCEDURE ORDERABLES F inal Result from Last 3 Months or Most Recently Relevant to Health Maintenance Insurance [facility] H[facility]/PPO Address: [facility] [id number] [place] [id number] [facility] Advance Directives For more information, please contact: [phone] * Full Code (Latest Code Status on File) Date Activated Date Inactivated Comments 01/05/2019 6:33 AM 01/25/2019 7:07 PM * Full Code Date Activated Date Inactivated Comments 12/31/2018 9:03 PM 01/05/2019 6:30 AM * Full Code Date Activated Date Inactivated Comments 12/31/2018 6:39 PM 12/31/2018 9:03 PM Healthcare Agents on File Name Relationship Healthcare Agent Relationsdc p Communication Heather Cason Spouse Health Care Agent Care Teams Fondant Puff Maker Relationship Specialty Start Date End Date Adi Alicia MD PCP - General 03/08/19 Eder Avila, PT Physical Therapist Physical Therapy 03/13/22
--- OUTSIDE RECORDS SUMMARY | 2025-04-26 18:40 | XMS_ITS | Encounter Summary ---
Author Organization [facility] Address [address] [place] [address] Phone Care Team Providers Care Certified Alcohol And Drug Counselor Name Role Phone Zaire Fernandes MD Primary Care Provider [phone] Adi Alicia MD Primary Care Provider + Eder Avila PT Unavailable Unavailab le Encounter Details Date Type Department Care Team (Late st Contact Info) Description 01/17/2019 Ophth Exam [facility] Ophthalmology [address] [place] [address] [place] [address] Fela Juan MD [address] [place] [address] Social History Tobacco Use Types Packs/Day Years Used Date Smoking Tobacco: Never Alcohol Use Standard Drinks/Week Comments Yes 0 (1 standard drink = 0.6 oz pur e alcohol) Comments No Sex and Gender Information Value Date Recorded Sex Assigned at Not on file Legal Sex Female 11:50 PM MINIATURE MODEL MAKER Gender Identity Not on file Sexual Orientation [...] Acuity Right eye Left eye Near sc FF FF Tonometry (Palpation, 9:01 AM) Right eye Left eye Pressure STP STP Pupils Dark Light Shape React APD Right eye 4 2 Round Brisk None Left eye 4 2 Round Brisk None Visual Lutz Right eye Left eye Full Full Appears full to evoked saccades Extraocular Movement Right eye Left eye Full Full Neuro/Psych Mood/Affect: Tracks, follows commands, non-verbal External Exam Right eye Left eye External Intubated Intubated Slit Lamp Exam Right eye Left eye Lids/Lashes Normal, lagophthalmos resolved N ormal, lagophthalmos resolved Conjunctiva/Sclera White and quiet White and royal et Cornea Clear Small inferior d irene Anterior Chamber Deep and formed Deep and formed Iris Round and reactive Round and francie ctive Lens Tr NS Tr NS Vitreous Normal Normal Care Teams Certified Alcohol And Drug Counselor Relationship Specialty Start Date End Date Zaire Fernandes MD [address] [place] [address] PCP - General 02/20/17 03/07/19 Adi Alicia MD [address] [place] [address] PCP - General 03/08/19 Eder Avila, PT Physical Therapist Physical Therapy 03/13/22 documented as of this encounter
--- OUTSIDE RECORDS SUMMARY | 2025-04-26 18:40 | XMS_ITS | Encounter Summary ---
Author Organization [facility] Address [address] [place] [address] Care Team Providers Care Route Aide Name Role Phone Adi Alicia MD Primary Care Provider Encounter Details Date Type Department Care Team (Latest Contact Info) Description 05/03/2003 Outpatient Historical HIS [facility] Mason Chan MD [address] [place] [id number] COUGH (Primary Dx) Social History Tobacco Use Types Packs/Day Years Used Date Smoking Tobacco: Never Assessed Comments Unknown Sex and Gender Information Value Date Recorded Sex Assigned at Not on file Legal Sex Female 2:54 AM SEAMLESS TUBE ROLLER Gender Identity Not on file Sexual Orientation Not on file documented as of this encounter Plan of Treatment Not on file documented as of this encounter Visit Diagnoses Diagnosis Cough- Primary documented in this encounter Care Teams Route Aide Relationship Specialty Start Date End Date Adi Alicia MD PCP - General Internal Medicine 02/02/19 documented as of this encounter
--- OUTSIDE RECORDS SUMMARY | 2025-04-26 18:40 | XMS_ITS | Clinical Summary ---
Author Organization [facility] Address [address] [place] [address] Care Team Providers Care Cracking Still Operator Name Role Phone Adi Alicia MD Primary Care Provider [phone] Allergies No known active allergies Medications calcium carbonate/vitami n D3 (CALCIUM WITH VITAMIN D3 ORAL) Take by mouth. Activ e [id number]- fish oil 1,000 mg Capsule 0 Active diclofenac sodium (VOLTAREN) 1 % gel Apply 2 Grams to affected area 4 times daily. To back area 300 Gram 2 2 Active benzonatate (TESSALON) 200 mg capsuleIndicatio ns:Cough, unspecified type Take 1 Capsule (200 mg) by mouth 3 times daily as needed for Cough. 30 Capsule 2 Active Additional Information Patient not taking.Reported on 05/10/2024 traZODone (DESYREL) 50 mg tablet Take 1 Tablet (50 mg) by mouth daily at bedtime. 30 Tablet 6 3 Active amLODIPine (NORVASC) 2.5 mg tabletIndication s:Essential hypertension Take 1 Tablet (2.5 mg) by mouth daily. 100 Tablet 3 5 Active Active Problems Patient Care Coordination No te Formatting of this note migh t be different from the original. Prev 05/10/24 Problem Noted Date Diagnosed Date History of pneumonia 12/17/2020 Overview (12/17/2020): ICU PUD (peptic ulcer disease) 02/02/2019 Other specified anemias 02/02/2019 Resolved Problems Problem Noted Date Diagnosed Date Resolved Date Need for vaccination for Strep pneumoniae 02/02/2019 12/17/2020 Pneumonia of both lungs due to infectious organism 02/02/2019 12/17/2020 Encounters Date Type Department Care Team Description 04/18/2025 External Device Data STL ABSTRACTION Provider, Abstract 04/12/2025 External Device Data [facility] ABSTRACTION Provider, Abstract 04/11/2025 External Device Data [facility] ABSTRACTION Provider, Abstract 02/16/2025 Refill [facility] Primary Care [address] [address] Adi Alicia MD Essential hypertension 01/30/2025 External Device Data ST[facility] ABSTRACTION Provider, Abstract 01/24/2025 External Device Data ST[facility] ABSTRACTION Provider, Abstract from Last 3 Months Immunizations Immunization Administration Dates Next Due (ADACEL/BOOSTRIX)(10 YR UP) TDAP VACCINE, 0.5ML, IM 03/07/2019 (PFIZER)(12 YR UP) COVID-19 VACCINE - EMERGENCY USE AUTHORIZATION, MRNA, [id number](PF) 30 MCG/0.3 ML IM SUSP 04/14/2022,09/15/2021,02/12/2021,01/18 (PNEUMOVAX 23)(50 YRS UP) PN EUMOCOCCAL POLYSACCHARIDE (PPV23) 0.5 ML, IM 02/02/2019 (SHINGRIX)(50 YRS UP) ZOSTER VACCINE RECOMBINANT, 0.5 ML, IM 10/17/2019,06/10/2019 INFLUENZA VACCINE QUADRIVALE NT 6 MOS UP PF IM 01/21/2019 Influenza Seasonal Unspecifi ed Formulation IM 09/01/2022,08/27/2021,09/15/2020,03/20 Influenza Vaccine Quad Split 18 Yrs+ Im 08/23/2019 PREVNAR (PCV13) pneumococcal 13-valent conjugate Vaccine 11/02/2020 Family History Medical History Relation Name Comments Mikayla Gerhig's Disease Father High Cholesterol Mother Gayathri Morley Hypertension Mother Gayathri Morley Colon Cancer Neg Hx Relation Name Status Comments Brother Father Maternal Grandfather Maternal Grandmother Mother Gayathri Morley Alive Paternal Grandfather Paternal Grandmother Sister 1 Alive Sister 2 Alive Sister 3 Alive Son Alive Social History Tobacco Use Types Packs/Day Years Used Date Smoking Tobacco: Never Smokeless Tobacco: Never Tobacco Cessation:Counseling Given: No Alcohol Use Standard Drinks/Week Comments Yes 2 (1 standard drink = 0.6 oz pur e alcohol) social Comments No Sex and Gender Information Value Date Recorded Sex Assigned at Not on file Legal Sex Female 2:54 AM CUSTOMER SERVICE CORRESPONDENCE CLERK Gender Identity Not on file Sexual Orientation Not on file Last Filed Vital Signs Vital Sign Reading Time Taken Comments Blood Pressure 118/82 05/10/2024 9:35 AM CDT Pulse 51 05/10/2024 9:35 AM CDT Temperature 36.6 C (97.8 F) 05/11/2023 10:11 AM CDT Respiratory Rate 16 05/11/2023 10:11 AM CDT Oxygen Saturation 98% 05/10/2024 9:35 AM CDT Inhaled Oxygen Concentration - - Weight 50.8 kg (112 lb) 05/10/2024 9:35 AM CDT Height 154.9 cm (5' 1) 05/10/2024 9:35 AM CDT Body Mass Index 21.16 05/10/2024 9:35 AM CDT Plan of Treatment Health Maintenance Due Date Last Done Comments HPV/Cotest (21-29) 1985 CERVICAL CANCER SCREENING 1994 HPV/Cotest (30-65) 1994 PAP SMEAR 1994 FIT-DNA Q 3 years 2009 FIT/FOBT Q 1 year 2009 Flex Sig/CT Colonography Q 5 years 2009 COLORECTAL SCREENING 05/29/2024 05/29/2014, 05/29/20 14 Colorectal Cancer Screening 05/29/2024 INFLUENZA VACCINE (#1) 2024 , 08/27/2021, 09/15/2020, Additional history exists COVID-19 Vaccine ( season) 2024 04/14/2022, 09/15/2021, 02/12/2021, Additional history exists Preventative Visit- Commercial 11/23/2024 05/10/2024, 05/11/2023, 11/27/2021, Additional history exists BREAST CANCER SCREENING 10/11/2025 10/11/20 24, 10/08/2023, 10/08/2023, Additional history exists DTAP/TDAP/TD VACCINES (2 - Td or Tdap) 03/07/2029 03/07/2019 RSV VACCINE (60+ or ) (1 - 1-dose 75+ series) 2039 ZOSTER VACCINE Completed 10/17/2019, 06/10/2019 HEPATITIS B VACCINES Aged Out No long er eligible based on patient's age to complete this topic Procedures Procedure Name Priority Date/Time Associated Diagnosis Comments MAMMO SCREEN BILAT W OR WO CAD Routine 10/11/2024 4:46 PM CUSTOMER SERVICE CORRESPONDENCE CLERK from Last 3 Months or Most Recently Relevant to Health Maintenance Results * MAMMO SCREEN BILAT W OR WO CAD (10/11/2024 4:46 PM CUSTOMER SERVICE CORRESPONDENCE CLERK) Anatomical Region Laterality Modality Breast Bilateral Mammography us Abstract Provider MAMMO ORDERABLES Edited Result - Final from Last 3 Months or Most Recently Relevant to Health Maintenance Insurance [employer] [id number] Advance Directives For more information, please contact: [phone] * Full Code (Latest Code Status on File) Date Activated Date Inactivated Comments 01/13/2020 9:07 AM 01/13/2020 12:41 PM Care Teams Cracking Still Operator Relationship Specialty Start Date End Date Adi Alicia MD PCP - General Internal Medicine 02/02/19
--- OUTSIDE RECORDS SUMMARY | 2025-04-26 18:40 | XMS_ITS | Continuity of Care Document ---
Author Organization [facility] Address [address] [place] [address] [place] [address] Phone Care Team Providers Care Vacuum Kettle Cook Name Role Phone Jj Cleary OD Unavailable Unavailable Allergies, Adverse Reactions, Alerts Substance Reaction Status Criticality No Known Allergies Active No Inform ation Medications Medication Instructions Dosage Effective Dates (start - stop) Status Comments Vitamin D3 4,000 unit capsule take 1 by oral route every day - Active Fish Oil 120 mg-180 mg capsule take one tablet daily - Active Procedures Procedure Date Office/outpatient Visit, [facility] Dry Eye Vitamin 120 Count Zulma Eye Mask Advance Directives Directive Yes / No Effective Date File Name No Information Encounters Encounter Description Practice Location Reason(s) For Visit Diagnoses Date Provider Providers Copied on Encounter Office/outpat ient Visit, [facility], [address] [place] [address] [address], [place], [place], [id number], [place] tel:[phone] SEC Jose [place] Professional Eyelid swollen (chief complaint) Meibomian gland dysfunction (MGD) of both eyesAge-rela arpita nuclear cataract, bilateral 0 Evin Gardner. [address] [place] [address], [address] [place] [address], [place], [address], [place]. tel:[phone] Referring Provider: Jj Cleary OD R, [address] [place] [address] [address] [facility], [place], [address]. tel:[phone] Family History Family Member Type Diagnosis Age At Onset No Information Payers Payer name Insurance type Covered libertarian ID Authoriza tion(s) [facility] [id number] Social History Type Description Quantity Date Captured Comments Alcohol Use Details 3 glasses weekly 0 Caffeine Use Details tea 1 cup per day Tobacco Use Status Current non-smoker 20 Smoking Status Never smoker Non-Smoking Tobacco Use Details : No Details Available : No Details Available Sex Female Chief Complaint And Reason For Visit From encounter dated '04/13/2020 16:00'. Eyelid swollen (chief complaint). Description: The 54 year old female presents for evaluation of Eyelid swollen in the right eye. Hx of Eye infection and soft CL wear. Pt reports RUL was swollen, intermittent, x 4 wks, she felt a bump under there and then some white stuff came out and it is not swollen now ever since she made the appt. Pt wears Daily CLS and she slept in them for about 4-5 hrs and she wonders if that did. Pt reports OS has always felt fine. Pt reports ANEUDY was about [address] Dumont and she switched to the new daily CLS. Reason For Referral Reason For Referral No Information Plan Of Treatment Date Type Action Status Patient Education Cataracts: Care Instruc tions completed History Of Present Illness Encounter Date Complaint History Of Prese nt Illness Eyelid swollen The 54 year old female presents for evaluation of Eyelid swollen in the right eye. Hx of Eye infection and soft CL wear. Pt reports RUL was swollen, intermittent, x 4 wks, she felt a bump under there and then some white stuff came out and it is not swollen now ever since she made the appt. Pt wears Daily CLS and she slept in them for about 4-5 hrs and she wonders if that did. Pt reports OS has always felt fine. Pt reports ANEUDY was about [address] Dumont and she switched to the new daily CLS. Functional Status Date Functional Assessmen t No Information Instructions Date Instruction Additional Infor mation Impression/Plan Assessments Type Assessment Date assessment Meibomian gland dysfunction (MGD ) of both eyes assessment Age-related nuclear cataract, bi lateral Patient Care Teams Name Effective Dates (start - stop) Status Members No Information
--- OUTSIDE RECORDS SUMMARY | 2025-04-26 18:47 | XMS_ITS | Continuity of Care Document ---
Author Organization [facility] Address [address] [place] [address] [place] [address] Phone Care Team Providers Care Stitcher Set Up Operator Automatic Name Role Phone Jj Cleary OD Unavailable [...] - Active Procedures Procedure Date Office/outpatient Visit, [facility] Dry Eye Vitamin 120 Count Zulma Eye Mask Advance Directives Directive Yes / No Effective Date File Name No Information Encounters Encounter Description Practice Location Reason(s) For Visit Diagnoses Date Provider Providers Copied on Encounter Office/outpat ient Visit, [facility], [address] [place] [address] [address], [place], [place], [id number], [place] tel:[phone] SEC Jose [place] Professional Eyelid swollen (chief complaint) Meibomian gland dysfunction (MGD) of both eyesAge-rela arpita nuclear cataract, bilateral 0 Evin Gardner. [address] [place] [address], [address] [place] [address], [place], [address], [place]. tel:[phone] Referring Provider: Jj Cleary OD R, [address] [place] [address] [facility], [place], [address]. tel:[phone] Family History Family Member Type Diagnosis Age At Onset No Information Payers Payer name Insurance type Covered libertarian ID Authoriza tion(s) [facility] [id number] Social History Type Description Quantity Date Captured [...]
[2025-04-26 18:48] VITALS: BP 147/86; PULSE 56; RESP 16; TEMP 36.6; O2SAT 98
--- NOTE | 2025-04-26 19:22 | ED_ITS ---
HPI - Eye Problem General Chief complaint: Eye Problems Stated complaint: swollen rt eyelid Source: patient Mode of arrival: ambulatory Limitations: no limitations History of Present Illness HPI Narrative: 59 y/o female presented for c/o right upper eyelid swelling, redness and tenderness. Onset 4 days. applied warm compresses but continued to worsen, now with swelling under the eye. Denies vision changes, photophobia, eye drainage, or FB sensation. chief complaint: eye pain Related Data Home Medications ?Medication ?Instructions ?Recorded ?Confirmed ?Last Taken ?Type calcium 600 mg (as cap PO 10/31/19 10/30/23 Unknown History carbonate)-vitamin D3 12.5 mcg (500 unit) capsule (Calcium with Vit D3) amlodipine 2.5 mg tablet mg 04/26/25 Unknown History Allergies Allergy/AdvReac Type Severity Reaction Status Date / Time No Known Allergies Allergy Verified 10/30/23 13:47 Review of Systems Review of Systems: CONSTITUTIONAL: Denies body aches, fever, chills EYES:Endorses swelling, redness and pain to right eye; Denies visual changes FB sensation, photophobia ENT: Denies rhinorrhea, congestion, sore throat, or otalgia. CARDIOVASCULAR: Denies chest pain, palpitations RESPIRATORY: Denies cough or dyspnea. GASTROINTESTINAL: Denies abdominal pain, nausea, vomiting, or diarrhea. SKIN: Denies rash, itching, or wounds. MUSCULOSKELETAL: Denies back pain, joint pain, or myalgia. NEUROLOGIC: Denies headache, numbness, tingling, or weakness. All systems reviewed & are unremarkable except as noted in HPI and below PMFSH Past Medical History Medical History (Updated 04/26/25 @ 19:24 by Eli Sandoval APRN) History of benign breast tumor Anomaly of diaphragm Vaginal delivery Family History Family History Father Cerebrovascular accident Patient's father is Grandparent Cerebrovascular accident Diabetes mellitus Social History Social History Smoking status: Never smoker Second hand tobacco smoke exposure: No Alcohol intake: current Lack of Transportation: No Lack of Food: Never True Current Housing: I Have Housing Concerned About Future Housing: No Difficulty Paying Gas/Electric Bills: No Difficulty Paying for Meds: No Currently Unemployed: No Education: Trade/Vocational Certificate Difficulty w/ Childcare or Family Care: No Comments At time of signature, I have reviewed and agree with nursing past medical, surgical, social and family history unless otherwise noted. Please see nursing chart for further information. There is no relevant family history pertinent to the presenting complaint Exam Narrative: GENERAL: Well-appearing HEAD: Normocephalic, atraumatic. EYES: right upper eye lid swelling, redness and tenderness c/w stye. Mild swelling under the eye without erythema. EOMI. PERRLA No conjunctival injection or drainage, No FB. ENT: Mucous membranes pink and moist. No rhinorrhea. TMs normal bilaterally. Throat normal. Uvula midline. SKIN: Warm, dry, no rash. Normal skin turgor. NEURO: No focal deficits. Alert and oriented x3 PSYCH: Normal affect. Course Course Emergency Course: Patient is aware of diagnosis, understands and agrees to treatment plan. Anticipatory guidance given. Patient agrees to follow-up as directed and is aware of reasons to seek care at the emergency department. Portions of this record may have been created with voice recognition software Level of Care: Express Care Visit Vital Signs Vital signs: Vital Signs Temperature 98 F 04/26/25 18:48 Pulse Rate 56 L 04/26/25 18:48 Respiratory Rate 16 04/26/25 18:48 Blood Pressure 147/86 H 04/26/25 18:48 Pulse Oximetry 98 04/26/25 18:48 Oxygen Delivery Room Air 04/26/25 18:48 Temperature 98 F 04/26/25 18:48 Pulse Rate 56 L 04/26/25 18:48 Respiratory Rate 16 04/26/25 18:48 Blood Pressure 147/86 H 04/26/25 18:48 Pulse Oximetry 98 04/26/25 18:48 Oxygen Delivery Room Air 04/26/25 18:48 MDM - Eye Problem MDM Narrative Medical decision making narrative: Discussed physical exam findings c/w stye to right upper eyelid. Advised supportive measures. Rx sent if symptoms worsen. Reviewed s/s to go to the ER. Pt is appropriate for outpt treatment and follow up with pcp/ophtho. Differential Diagnosis Differential diagnosis: Likely corneal abrasion, conjunctivitis, acute iritis, periorbital cellulitis, corneal ulcer and other (stye) Discharge Plan Discharge Clinical Impression: Internal hordeolum of right eye Patient Disposition: Home Condition: Stable Instructions: Antibiotic Form, Stye (ED) Additional Instructions: Stye will heal on it's own if you apply warm compresses to the eyelid several times a day If the area continues to worsen (redness, swelling, pain etc) you will need to f ollow up with an personal injury specialist for further evaluation and management. - Recommend [facility] or [employer]. - You can start the antibiotic if you develop these symptoms as well. Tylenol as needed for pain Contact lenses may increase irritation Follow up with your primary care provider Go to the ER for worsening symptoms or concerns. Patient Language: Portuguese Prescriptions: New cephalexin 500 mg capsule 500 mg PO Q12H 5 Days Qty: 10 0RF No Action amlodipine 2.5 mg tablet calcium carbonate-vitamin D3 [Calcium 600 with Vitamin D3] 600 mg(1,500mg) - 500 unit capsule PO Follow-up/Referrals: Ravin,Adi Quiros MD [Primary Care Provider] -
== END 2025-04-26 19:30 | disposition home or self-care (01) ==
PROVIDERS: PCP Internal Medicine
DX: H00.021 Hordeolum internum right upper eyelid (principal)
CPT/HCPCS: 99213; G0463